=== PATIENT | male | born 1970 | race Asian ===

== ENCOUNTER 2024-12-05 06:07 | Inpatient (IN) | payer OTHER ==
[~2024-12-05] VITALS: Ht 172.7 cm; Wt 85.4 kg
[~2024-12-05 06:07] MED LIST: AMLO-257 PO; FENO160T16 PO; IBUP-1492 PO
[2024-12-05 06:58] LABS: ANION GAP 5 mmol/L (8-16); CALCIUM, TOTAL 8.7 mg/dL (8.8-10.5); CARBON DIOXIDE 30 mmol/L (22-29); CHLORIDE 105 mmol/L (98-107); CREATININE 1.05 mg/dL (0.60-1.30); GLOMERULAR FILTR. RATE CALC > 60 mL/min (>60); GLUCOSE,RANDOM 110 mg/dL (70-110); POTASSIUM 4.3 mmol/L (3.5-5.1); SODIUM SERUM 140 mmol/L (136-145); UREA NITROGEN, BLOOD 17 mg/dL (7-18)
[2024-12-05 07:00] LABS: BASOPHILS % (AUTO) 2.8 % (0.0-2.0); HEMATOCRIT 45.6 % (41-53); HEMOGLOBIN 15.7 g/dL (13.5-17.5); LYMPHOCYTES # (AUTO) 1.3 K/uL (1.0-4.8); LYMPHOCYTES % (AUTO) 19.2 % (22.0-44.0); MEAN CORPUSCULAR HEMOGLOBIN 28.5 pg (26.0-34.0); MEAN CORPUSCULAR HGB CONC 34.5 G/dL (31.0-37.0); MEAN CORPUSCULAR VOLUME 83 fL (80-100); MONOCYTES # (AUTO) 0.6 K/uL (0.1-1.0); MONOCYTES % (AUTO) 8.6 % (2.0-9.0); NEUTROPHILS # (AUTO) 4.4 K/uL (1.8-7.7); NEUTROPHILS % (AUTO) 67.4 % (40.0-70.0); PLATELET COUNT (AUTO) 173 K/uL (150-450); RED BLOOD CELL COUNT(AUTO) 5.53 MIL/uL (4.50-5.90); RED CELL DISTRIBUTION WIDTH 13.5 % (11.5-14.5); WHITE BLOOD COUNT (AUTO) 6.6 K/uL (4.5-11.0)
[2024-12-05 07:08] LABS: TROPONIN I-HIGH SENSITIVITY 8 ng/L (<76)
[2024-12-05] MEDS: ASPIRIN 81 MG CHEWABLE TABLET PO ONE (08:04)
[2024-12-05] MEDS: NITROGLYCERIN 2% (1 GM=INCH) OINTMENT PACKET TP ONE (08:04)
[2024-12-05] MEDS: AmLODIPine BESYLATE 5 MG TABLET PO ONE (08:27)
[2024-12-05] MEDS: LISINOPRIL 10 MG TABLET PO ONE (08:27)
[2024-12-05 08:33] LABS: TROPONIN I-HIGH SENSITIVITY 7 ng/L (<76)
[2024-12-05] MEDS ORDERED: LISI5TAB21 PO (14:57)
[2024-12-05] MEDS ORDERED: ONDANSETRON HCL 4 MG/2 ML VIAL IVP PRN (15:00)
[2024-12-05] MEDS ORDERED: HYDROCODONE/ACETAMINOPHEN 5-325 MG TABLET PO PRN (15:00)
[2024-12-05] MEDS ORDERED: ZOLPIDEM TARTRATE 5 MG TABLET PO PRN (15:00)
[2024-12-05] MEDS ORDERED: MORPHINE SULFATE 2 MG/ML SYRINGE IVP PRN (15:00)
[2024-12-05] MEDS ORDERED: BISACODYL 10 MG RECTAL RECTAL SUPPOSITORY PR PRN (15:00)
[2024-12-05] MEDS ORDERED: MAGNESIUM HYDROXIDE SUSPENSION 30 ML UDCUP PO PRN (15:00)
[2024-12-05 16:22] VITALS: BP 131/90; PULSE 78; RESP 19; TEMP 98.4; O2SAT 97
[2024-12-05] MEDS: HEPARIN SODIUM,PORCINE 5,000 UNITS/ML VIAL SQ SCH (17:05)
[2024-12-05] MEDS: ACETAMINOPHEN 325 MG TABLET PO PRN (17:05)
[2024-12-05 20:18] VITALS: BP 128/79; PULSE 81; RESP 18; TEMP 98; O2SAT 96
[2024-12-05] MEDS: DOCUSATE SODIUM 100 MG CAPSULE PO SCH (20:29)
[2024-12-05] MEDS: AmLODIPine BESYLATE 5 MG TABLET PO SCH (20:29)
[2024-12-06 00:04] VITALS: BP 129/77; PULSE 87; RESP 19; TEMP 98; O2SAT 97
[2024-12-06 04:06] VITALS: BP 132/82; PULSE 74; RESP 19; TEMP 98; O2SAT 97
[2024-12-06 07:24] LABS: CHOL/HDL RATIO 7.7 (4.2-7.3); CHOLESTEROL 169 mg/dL (131-200); HDL CHOLESTEROL 22 mg/dL (40-60); TRIGLYCERIDES 863 mg/dL (15-150)
[2024-12-06 08:10] VITALS: BP 138/90; PULSE 73; RESP 20; TEMP 98.4; O2SAT 95
[2024-12-06] MEDS: ASPIRIN 81 MG CHEWABLE TABLET PO SCH (08:23)
[2024-12-06] MEDS: FENOFIBRATE 160 MG TABLET PO SCH (08:23)
[2024-12-06] MEDS: PANTOPRAZOLE SODIUM 40 MG DR TABLET PO SCH (08:24)
[2024-12-06] MEDS ORDERED: LISI5TAB21 PO (11:22)
[2024-12-06] MEDS ORDERED: FENO160T16 PO (11:22)
[2024-12-06] MEDS ORDERED: AMLO-257 PO (11:22)
[2024-12-06] MEDS ORDERED: ASPI-1450 PO (11:22)
[2024-12-06 11:51] VITALS: BP 137/91; PULSE 86; RESP 18; TEMP 97.7; O2SAT 95
== END 2024-12-06 15:05 | disposition home or self-care (01) | DRG 305 ==
LOC: EMS 06:08 → EDH 08:37 → 5S 15:35
PROVIDERS: ADMIT Internal Medicine; ATTEND Internal Medicine
DX: I16.0 Hypertensive urgency (principal); I20.0 Unstable angina; I10 Essential (primary) hypertension; E78.5 Hyperlipidemia, unspecified; Z79.82 Long term (current) use of aspirin; Z79.899 Other long term (current) drug therapy
CPT/HCPCS: 71045; 80048; 80061; 83036; 83880; 84484; 85025; 93005; 93306; 99285; J1644; 36415-L1; 36415-TC